=== PATIENT | male | born 1960 | race Caucasian/White ===

== ENCOUNTER 2021-01-16 05:56 | Emergency (ER) | payer OTHER ==
[2021-01-16] MEDS ORDERED: SODIUM CHLORIDE 1,000 ML IV SCH (06:00)
[2021-01-16 06:38] VITALS: BMI 25.8
[2021-01-16 06:52] LABS: VENOUS BASE EXCESS -1.1 mmol/L (-2-2); VENOUS O2 SATURATION 29.8 % (70-80); VENOUS PCO2 59.9 mmHg (38-52); VENOUS PH 7.273 (7.310-7.410)
[2021-01-16 06:55] LABS: BASO % 0.5 % (0-2.0); EOS % 1.1 % (0-4.5); HEMOGLOBIN 15.3 GM/dL (11.7-16.9); LYMPH % 23.2 % (8-40); MCH 28.8 pg (25.7-33.7); MCHC 34.7 g/dl (32.0-35.9); MEAN PLT VOLUME 8.2 fl (7.5-11.1); MONO % 4.6 % (3.8-10.2); NEUT % 70.6 % (42.8-82.8); PLATELET COUNT 214 K/MM3 (134-434); RBC 5.31 M/mm3 (4.00-5.60); RDW 14.4 % (11.9-15.9); WHITE BLOOD COUNT 4.3 K/mm3 (4.0-10.0)
[2021-01-16 07:10] LABS: INR 0.87 (0.83-1.09); PROTHROMBIN TIME (PATIENT) 10.8 SEC (9.7-13.0)
[2021-01-16 07:13] LABS: ACTIVATED PTT 26.1 SECONDS (25.2-36.5)
[2021-01-16 07:24] LABS: ALBUMIN 4.2 g/dl (3.4-5.0); CALCIUM 8.1 mg/dL (8.5-10.1)
[2021-01-16 07:27] LABS: CHOLESTEROL 267 mg/dL (50-200); TRIGLYCERIDES 582 mg/dL (0-150)
[2021-01-16 07:28] LABS: CREATININE 1.5 mg/dL (0.55-1.3); LDL CHOLESTEROL (ONLY SJRH) 133 mg/dL (5-100)
[2021-01-16 07:29] LABS: BILIRUBIN,TOTAL 0.3 mg/dL (0.2-1); TOT PROT 7.5 g/dl (6.4-8.2)
[2021-01-16 07:31] LABS: HDL CHOLESTEROL 32 mg/dL (40-60)
[2021-01-16 13:23] VITALS: BP 165/88; PULSE 92; TEMP 98
== END 2021-01-16 13:00 | disposition home or self-care (01) ==
LOC: JER 05:56
DX: F10.920 Alcohol use, unspecified with intoxication, uncomplicated (principal)
CPT/HCPCS: 36415; 70450-TC; 80053; 80061; 80307; 82550; 82553; 82803; 83721; 84484; 85025; 85610; 85730; 93005; 93010; 99284-25; C9803; U0003; U0005